=== PATIENT | female | born 1965 | race Caucasian/White ===

== ENCOUNTER 2021-02-21 12:29 | Emergency (ER) | payer BC, MEDICARE ==
[~2021-02-21] VITALS: Wt 112.0 kg
[2021-02-21 14:43] LABS: HEMATOCRIT 24.5 % (37.0-47.0); MEAN CELL VOLUME 96.5 fl (81.0-99.0); MEAN CORPUSCULAR HGB 30.3 pg (27.0-31.0); MEAN CORPUSCULAR HGB CONC 31.4 g/dl (33.0-37.0); RED BLOOD COUNT 2.54 10*6/uL (4.10-5.10); RED CELL DISTRI WIDTH 17.2 % (0-14.5)
[2021-02-21 14:59] LABS: INTERNATIONAL NORM RATIO 0.9 (2.0-3.5)
[2021-02-21 15:02] LABS: ALBUMIN 2.3 gm/dl (3.1-4.5); CREATININE 2.17 mg/dL (0.55-1.02); POTASSIUM 4.4 mmol/L (3.5-5.1)
[2021-02-21 15:03] LABS: PLATELET COUNT AUTOMATED 13 10*3/uL (130-400); TOTAL PROTEIN 6.2 gm/dL (6.4-8.2)
[2021-02-21 16:49] LABS: ACT PARTIAL THROMBO TIME 23.1 SECONDS (20.0-32.1)
[2021-02-21 17:02] LABS: MICROCYTOSIS MODERATE; PLATELET SUFFICIENCY LOW (NORMAL); TOTAL CELLS COUNTED 100 #CELLS
== END 2021-02-21 20:26 | disposition short-term general hospital (02) ==
LOC: ED 12:29
PROVIDERS: Emergency Medicine
DX: D69.6 Thrombocytopenia, unspecified (principal); Z88.0 Allergy status to penicillin; Z88.8 Allergy status to other drugs, medicaments and biological substances; Z88.2 Allergy status to sulfonamides